=== PATIENT | female | born 1970 | race Caucasian/White ===

== ENCOUNTER 2017-07-30 11:55 | Emergency (ER) | payer BC ==
[~2017-07-30] VITALS: Ht 172.7 cm; Wt 119.0 kg
[2017-07-30 12:05] VITALS: PULSE 93; RESP 18; TEMP 98; O2SAT 97
[2017-07-30 12:11] VITALS: BP 198/114
[2017-07-30] MEDS ORDERED: EXCETAB31 PO (12:12)
[2017-07-30] MEDS ORDERED: PROCHLORPERAZINE INJ 10 MG/2 ML VIAL IVP ONE (12:15)
[2017-07-30] MEDS ORDERED: SODIUM CHLORIDE 0.9% FLUSH 10 ML FLUSH IVF PRN (12:15)
[2017-07-30] MEDS ORDERED: diphenhydrAMINE HCL 50 MG/ML VIAL IVP ONE (12:15)
[2017-07-30] MEDS ORDERED: ONDANSETRON ODT 4 MG TAB PO ONE (12:45)
[2017-07-30] MEDS ORDERED: diphenhydrAMINE HCL 25 MG CAP PO ONE (12:45)
[2017-07-30] MEDS ORDERED: PROCHLORPERAZINE MALEATE 10 MG TAB PO ONE (12:45)
--- NOTE | 2017-07-30 13:11 | RADRPT ---
EXAM DATE/TIME: 07/30/2017 12:53 [place] COMPARISON: No previous studies available for comparison. INDICATIONS : Left arm swelling. MEDICAL HISTORY : Breast cancer. SURGICAL HISTORY : Cholecystectomy. Mastectomy, bilateral. Bilateral knee surgery. ENCOUNTER: Initial ACUITY: 4 - 6 months PAIN SCORE: 0/10 LOCATION: Left arm. FINDINGS: There is spontaneous flow documented in the brachial, basilic, cephalic, axillary, and subclavian vei ns. The vessels are compressible and augmentation response is documented. No filling defects are se en. The flow is phasic with respiration. Direction of flow in the jugular vein is caudal. CONCLUSION: Normal examination. Noé Rosenbaum MD on July 30, 2017 at 13:09 Board Certified Radiologist. This report was verified electronically.
[2017-07-30 13:53] LABS: BLOOD, URINE NEG (NEG); GLUCOSE,URINE NEG (NEG); KETONE, URINE NEG (NEG); NITRITE,URINE NEG (NEG); PH, URINE 5.5 (5.0-8.5)
--- NOTE | 2017-07-30 13:54 | PD ---
HPI Chief Complaint: Headache Time Seen by Provider: 12:03 Travel History International Travel<30 days: No Contact w/Intl Traveler<30days: No Traveled to known affect area: No History of Present Illness HPI patient's 46 years old and arrives to the ER with a complaint of increasing left upper extremity swelling for the past 6 months. She's also had a few weeks of headache occipital in location. 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 She's had no stiffness of the neck or decreased range of motion or fever. She reports taking Excedrin 6-8 times daily and now has developed nausea after taking it. She has no shortness of breath. Headache pain is constant and of moderate severity. She's had no loss of consciousness or weakness. Pt also reports insomnia from urinary frequency in the nights. no dysuria polyuria or polydipsia. PFSH Past Medical History Cancer: Yes (breast) Chemotherapy: Yes Diminished Hearing: No Radiation Therapy: Yes ?: Not Past Surgical History Cholecystectomy: Yes Genitourinary Surgery: Yes (kidney stones) Mastectomy: Yes Neurologic Surgery: Yes (L4-L5, cervical fusion) Other Surgery: Yes (TMJ) Social History Alcohol Use: Yes (occ) Tobacco Use: No Allergies-Medications (Allergen,Severity, Reaction): Coded Allergies: peanut (Verified Allergy, Severe, 07/30/17) Sulfa (Sulfonamide Antibiotics) (Verified Allergy, Unknown, 07/30/17) Uncoded Allergies: tape (Adverse Reaction, Unknown, 07/30/17) Reported Meds & Prescriptions Reported Meds & Active Scripts Active Bactrim DS (Sulfamethoxazole-Trimethoprim) 800-160 Mg Tab 1 Tab PO BID Phenergan (Promethazine HCl) 25 Mg Tablet 25 Mg PO Q6H PRN Reported Excedrin Migraine Caplet (Aspirin/Acetaminophen/Caffeine) 250 Mg-250 Mg-65 Mg Tablet 1 Tab PO DIRECTED Review of Systems Except as stated in HPI: all other systems reviewed are Neg General / Constitutional: No: Fever Cardiovascular: No: Chest Pain or Discomfort, Diaphoresis Respiratory: No: Shortness of Breath Physical Exam Narrative GENERAL: 46-year-old female well-nourished well-developed mild distress SKIN: Warm and dry. HEAD: Atraumatic. Normocephalic. EYES: Pupils equal and round. No scleral icterus. No injection or drainage. ENT: No nasal bleeding or discharge. Mucous membranes pink and moist. NECK: Trachea midline. No JVD. CARDIOVASCULAR: Regular rate and rhythm. RESPIRATORY: No accessory muscle use. Clear to auscultation. Breath sounds equal bilaterally. GASTROINTESTINAL: Abdomen soft, non-tender, nondistended. Hepatic and splenic margins not palpable. MUSCULOSKELETAL: Extremities without clubbing, cyanosis. There is LUE swelling generalized without erythema warmth or induration. No tenderness about the paracervical musculature all the patient reports massage relieves pain. No focal spinal tenderness. NEUROLOGICAL: Awake and alert. No obvious cranial nerve deficits. Motor grossly within normal limits. Five out of 5 muscle strength in the arms and legs. Normal speech. PSYCHIATRIC: Appropriate mood and affect; insight and judgment normal. Data Data Last Documented VS Vital Signs Date Time Temp Pulse Resp B/P (MAP) Pulse Ox O2 Delivery O2 Flow Rate FiO2 07/30/17 16:00 86 18 178/109 (132) 99 07/30/17 14:48 Room Air 07/30/17 12:05 98.0 VS reviewed Orders Orders Ecg Monitoring (07/30/17 12:13) Oximetry (07/30/17 12:13) Sodium Chloride 0.9% Flush (Ns Flush) (07/30/17 12:15) Prochlorperazine Inj (Compazine Inj) (07/30/17 12:15) Diphenhydramine Inj (Benadryl Inj) (07/30/17 12:15) Us Arm Venous Doppler (07/30/17 ) Urinalysis - C+S If Indicated (07/30/17 12:13) Prochlorperazine Maleate (Compazine) (07/30/17 12:45) Diphenhydramine (Benadryl) (07/30/17 12:45) Ondansetron Odt (Zofran Odt) (07/30/17 12:45) Clonidine (Catapres) (07/30/17 15:00) Ed Discharge Order (07/30/17 15:44) Labs Laboratory Tests Test 07/30/17 13:30 Urine Collection Type CLEAN CATCH Urine Color YELLOW Urine Turbidity CLEAR Urine pH 5.5 Urine Specific [place] 1.025 Urine Protein NEG mg/dL Urine Glucose (UA) NEG mg/dL Urine Ketones NEG mg/dL Urine Occult Blood NEG Urine Nitrite NEG Urine Bilirubin NEG Urine Leukocyte Esterase NEG Urine WBC 0-2 /hpf Urine Squamous Epithelial Cells 6-8 /hpf Urine Bacteria OCC /hpf Microscopic Urinalysis Comment CULT NOT INDICATED Urine Collection Time 13:30 [facility] Medical Decision Making Medical Screen Exam Complete: Yes Emergency Medical Condition: Yes Medical Record Reviewed: Yes Differential Diagnosis LUE DVT, lymphedema, UTI, cervicalgia, migraine, sah, meningitis, aneurysm Narrative Course Per patient's preference an IV or was discontinued and we manage her symptoms with oral medications. Additionally we could only check for urinalysis. Patient received Benadryl Compazine followed by a clonidine when her blood pressure read 215/109. She reported symptomatic improvement with near resolution of symptoms about 3 hours and 15 minutes following ED arrival. We discussed follow-up plans as well as return precautions and likely diagnoses and interventions for patient henceforth. All questions answered. Patient amenable with plan. Diagnosis Primary Impression: Headache Qualified Codes: R51 - Headache Additional Impressions: Bacteriuria Nausea & vomiting Qualified Codes: R11.2 - Nausea with vomiting, unspecified Referrals: Marianne Pinto MD [facility] Med/Other Pt SpecificInfo: Prescription(s) given Scripts Sulfamethoxazole-Trimethoprim (Bactrim DS) 800-160 Mg Tab 1 TAB PO BID for Infection, #6 TAB 0 Refills Prov: Georges Hanson MD 07/30/17 Promethazine (Phenergan) 25 Mg Tablet 25 MG PO Q6H Y for HEADACHE, #15 TAB 0 Refills Prov: Georges Hanson MD 07/30/17 Disposition: 01 DISCHARGE HOME Condition: Stable Georges Hanson MD Jul 30, 2017 13:54
[2017-07-30 14:04] LABS: BACTERIA, URINE OCC /hpf; COMMENT (UR) CULT NOT INDICATED; CULTURE IF INDICATED CULT NOT INDICATED; METHOD OF COLLECTION CLEAN CATCH; URINE COLOR YELLOW (YELLW/STRAW); WBC, URINE 0-2 /hpf (0-5)
[2017-07-30 14:48] VITALS: BP 216/116; PULSE 78; RESP 18; O2SAT 98
[2017-07-30] MEDS ORDERED: cloNIDine HCL 0.1 MG TAB PO ONE (15:00)
[2017-07-30 15:33] VITALS: BP 178/109
[2017-07-30] MEDS ORDERED: PROM25TA10 PO (15:41)
[2017-07-30] MEDS ORDERED: BACT800T5 PO (15:42)
[2017-07-30 16:00] VITALS: BP 178/109
== END 2017-07-30 16:02 | disposition home or self-care (01) ==
LOC: PHED 11:55
DX: R51 Headache (principal); R11.2 Nausea with vomiting, unspecified; M79.89 Other specified soft tissue disorders
CPT/HCPCS: 81001; 93971; 99284; Q0164

== ENCOUNTER 2018-02-10 12:38 | Emergency (ER) | payer OTHER, BC ==
[~2018-02-10] VITALS: Ht 172.7 cm; Wt 120.0 kg
[~2018-02-10 12:38] MED LIST: BACT800T5 PO; EXCETAB31 PO; PROM25TA10 PO
[2018-02-10 12:57] VITALS: BP 143/88; PULSE 74; RESP 17; TEMP 97.7; O2SAT 98
[2018-02-10] MEDS ORDERED: BYST5TAB2 PO (14:55)
--- NOTE | 2018-02-10 15:06 | PD ---
HPI Chief Complaint: Musculoskeletal Complaint Time Seen by Provider: 15:00 Travel History International Travel<30 days: No Contact w/Intl Traveler<30days: No Traveled to known affect area: No History of Present Illness HPI 47-year-old female with history of recurrent patellar dislocation, and status post surgery for same, presents emergency department after slip and fall at [employer]. Patient is an employee there. This is a workplace injury. Patient states she "relocated her kneecap" after her fall. She is now here with pain and swelling. She is using crutches borrowed from [employer]. Pain is currently 8 out of 10. She has difficulty bearing weight secondary discomfort. Patient denies any other injury. X-rays were ordered in triage. Patient is allergic to sulfa, peanuts, and tape [facility] Past Medical History Cancer: Yes (breast) Cardiovascular Problems: Yes Chemotherapy: Yes Diminished Hearing: No Hypertension: Yes Radiation Therapy: Yes Tetanus Vaccination: > 5 Years ?: Not Past Surgical History Cholecystectomy: Yes Genitourinary Surgery: Yes (kidney stones) Mastectomy: Yes (bilateral) Neurologic Surgery: Yes (L4-L5, cervical fusion) Other Surgery: Yes (TMJ) Social History Alcohol Use: Yes (occ) Tobacco Use: No Substance Use: No Allergies-Medications (Allergen,Severity, Reaction): Coded Allergies: peanut (Verified Allergy, Severe, 02/10/18) Sulfa (Sulfonamide Antibiotics) (Verified Allergy, Unknown, 02/10/18) Uncoded Allergies: tape (Adverse Reaction, Unknown, 07/30/17) Reported Meds & Prescriptions Reported Meds & Active Scripts Active Reported Bystolic (Nebivolol) 5 Mg Tab 5 Mg PO DAILY Review of Systems Except as stated in HPI: all other systems reviewed are Neg General / Constitutional: No: Fever Eyes: No: Visual changes HENT: No: Headaches Cardiovascular: No: Chest Pain or Discomfort Respiratory: No: Shortness of Breath Gastrointestinal: No: Abdominal Pain Genitourinary: No: Dysuria Musculoskeletal: Positive: Arthralgias, Limited ROM, Pain Skin: No Rash Neurologic: No: Weakness Psychiatric: No: Depression Endocrine: No: Polydipsia Hematologic/Lymphatic: No: Easy Bruising Physical Exam Narrative GENERAL: Moderately obese female in mild to moderate distress per SKIN: Warm and dry. Normal color. Normal turgor. No bruising. Small superficial abrasion to the anterior knee as noted. HEAD: Atraumatic. Normocephalic. EYES: Pupils equal and round. No scleral icterus. No injection or drainage. ENT: No nasal bleeding or discharge. Mucous membranes pink and moist. Pharynx is clear. Airway is patent NECK: Trachea midline. Supple and nontender CARDIOVASCULAR: Regular rate and rhythm. RESPIRATORY: No accessory muscle use. Clear to auscultation. Breath sounds equal bilaterally. MUSCULOSKELETAL: Extremities without clubbing, cyanosis, or edema. No obvious deformities. Patient has mild effusion to the right knee, with generalized discomfort above the patella. There is no loss of function. Range of motion is limited secondary to pain. There is no significant laxity appreciated. Exam is limited by patient's pain. NEUROLOGICAL: Awake and alert. No obvious cranial nerve deficits. Motor grossly within normal limits. Five out of 5 muscle strength in the arms and legs. Normal speech. PSYCHIATRIC: Appropriate mood and affect; insight and judgment normal. Data Data Last Documented VS Vital Signs Date Time Temp Pulse Resp B/P (MAP) Pulse Ox O2 Delivery O2 Flow Rate FiO2 02/10/18 12:57 97.7 74 17 143/88 (106) 98 Orders Orders Knee, Complete (4vws) (02/10/18 ) Ketorolac Inj (Toradol Inj) (02/10/18 15:15) Splint Or Brace Apply/Monitor (02/10/18 15:06) Crutches (02/10/18 15:06) MDM Medical Decision Making Medical Screen Exam Complete: Yes Emergency Medical Condition: Yes Differential Diagnosis Workplace injury. Patellar dislocation. Knee effusion. Narrative Course X-ray show no acute fracture or dislocation. Patient is noted to have calcifications of the cartilage. Patient is given Toradol 60 mg IM. Patient is placed in a knee immobilizer and crutches. Patient will be continued on ibuprofen 800 mg 3 times daily with food #30. Patient is given tramadol 50 mg 1 every 6 hours as needed pain #20 Patient is to ice this frequently and elevate and ambulate as tolerated with the knee immobilizer and crutches. Workers comp form is completed. Patient to follow-up with Dr. Vasques, or workers comp provider if symptoms persist. Diagnosis Primary Impression: Work place accident Additional Impression: Closed patellar dislocation Qualified Codes: S83.004A - Unspecified dislocation of right patella, initial encounter Referrals: Jaswant Vasques MD Patient Instructions: Crutch Instructions (ED), General Instructions, Knee Immobilizer (DC) Additional Instructions: X-ray show no acute fracture or dislocation. Patient is noted to have calcifications of the cartilage. Patient is given Toradol 60 mg IM. Patient is placed in a knee immobilizer and crutches. Patient will be continued on ibuprofen 800 mg 3 times daily with food #30. Patient is given tramadol 50 mg 1 every 6 hours as needed pain #20 Patient is to ice this frequently and elevate and ambulate as tolerated with the knee immobilizer and crutches. Workers comp form is completed. Patient to follow-up with Dr. Vasques, or workers comp provider if symptoms persist. Med/Other Pt SpecificInfo: Prescription(s) given Disposition: 01 DISCHARGE HOME Condition: Stable Macario Triana Feb 10, 2018 15:06
[2018-02-10] MEDS ORDERED: KETOROLAC TROMETHAMINE 60 MG/2 ML (IM) VIAL IM ONE (15:15)
--- NOTE | 2018-02-10 15:15 | RADRPT ---
EXAM DATE: 02/10/2018 2:59 PM EDT AGE/SEX: 47 years / Female INDICATIONS: Right anterior knee pain CLINICAL DATA: This is the patient's initial encounter. Patient reports that signs and symptoms have been present for 1 day and indicates a pain score of 10/10. MEDICAL/SURGICAL HISTORY: None. None. COMPARISON: No prior exams available for comparison. FINDINGS: There is joint space narrowing with periarticular sclerotic change and osteophyte production. This is most pronounced within the medial compartment. Linear calcifications involving the menisci. No fract ure or dislocation is seen. No joint effusion. Soft tissues are unremarkable. CONCLUSION: Moderate tricompartmental osteoarthritis. Electronically signed by: Ramone Fiore MD 02/10/2018 3:14 PM EDT
[2018-02-10] MEDS ORDERED: TRAM50TA PO (15:21)
[2018-02-10] MEDS ORDERED: IBUP1TAB7 PO (15:21)
== END 2018-02-10 15:46 | disposition home or self-care (01) ==
LOC: NEPD 12:38
DX: S83.004A Unspecified dislocation of right patella, initial encounter (principal); M17.11 Unilateral primary osteoarthritis, right knee; I10 Essential (primary) hypertension; W01.0XXA Fall on same level from slipping, tripping and stumbling without subsequent striking against object, initial encounter; Z85.3 Personal history of malignant neoplasm of breast; Z88.2 Allergy status to sulfonamides; Z79.899 Other long term (current) drug therapy
CPT/HCPCS: 73564; 96372; 99283; E0113; J1885; L1830